=== PATIENT | male | born 1975 | race African-American/Black ===

== ENCOUNTER 2016-11-13 01:48 | Emergency (ER) | payer MEDICAID ==
--- NOTE | 2016-11-13 01:55 | EDPHY ---
H & P HPI/ROS: HPI CHIEF COMPLAINT: Suicidal ideation, homicidal ideation HISTORY OF PRESENT ILLNESS: This patient 41-year-old male, history of MR, bipolar disorder and schizoaffective disorder, presents emergency room on M1 hold by [place] [employer]. Patient was missing person earlier today the chief of police that brought him in states that he leads his usp and goes to local gas station starts saying he is going to kill people. He has never harmed anybody he has MR. He lives in a usp. He has been, cooperative with a chief of police. He presents emergency room on M1 hold. He does admit to suicidal ideation without a specific plan, and homicidal ideation. Past Medical History: Bipolar disorder, MR, schizoaffective disorder Past Surgical History: No recent surgery Social History: Denies daily use of drugs alcohol tobacco Family History: Noncontributory ROS REVIEW OF SYSTEMS: A comprehensive 10 point review of systems is otherwise negative aside from elements mentioned in the history of present illness. Exam Constitutional appears nontoxic triage nursing summary reviewed, vital signs reviewed, awake/alert. Eyes normal conjunctivae and sclera, EOMI, PERRLA. HENT normal inspection, atraumatic, moist mucus membranes, no epistaxis, neck supple/ no meningismus, no raccoon eyes. Respiratory clear to auscultation bilaterally, normal breath sounds, no respiratory distress, no wheezing. Cardiovascular rate normal, regular rhythm, no murmur, no edema, distal pulses normal. Gastrointestinal soft, non-tender, no rebound, no guarding, normal bowel sounds, no distension, no pulsatile mass. Genitourinary no CVA tenderness. Musculoskeletal no midline vertebral tenderness, full range of motion, no calf swelling, no tenderness of extremities, no meningismus, good pulses, neurovascularly intact. Skin pink, warm, & dry, no rash, skin atraumatic. Neurologic awake, alert and oriented x 3, AAOx3, moves all 4 extremities equally, motor intact, sensory intact, CN II-XII intact, normal cerebellar, normal vision, normal speech. Psychiatric flat affect Heme/Lymph/Immune no lymphadenopathy. Differential Diagnosis: Includes but is not limited to in a particular order suicidal ideation, bipolar disorder,, schizoaffective disorder, depression, underlying MR Medical Decision Making: Plan for this patient IV establishment, blood draw for medical clearance. Patient on M1 hold. Will need mental health evaluation. Re-evaluation: [id number]: Mandy with P. Has seen evaluated the patient. She does not feel that the patient needs inpatient hospitalization or psychiatric care. He is at his mental status baseline. Plan will be to eventually left the hold and sent him back to his usp however we need to make contact with usp and make sure comfortable taking him back. He has MR and is felt to be at baseline. This is routine for him with the same complaints. Chronic suicidal ideation, chronic homicidal ideation. Source: Patient, Police Constitutional: Initial Vital Signs Temperature (C) 36.4 C 11/13/16 02:00 Heart Rate 82 11/13/16 02:00 Respiratory Rate 18 11/13/16 02:00 Blood Pressure 125/80 H 11/13/16 02:00 O2 Sat (%) 96 11/13/16 02:00 O2 Delivery Mode Room Air Allergies/Adverse Reactions: methylphenidate HCl [From Ritalin] Allergy (Unknown, Verified 12/23/12 11:56) risperidone [From Risperdal] Allergy (Unknown, Verified 12/23/12 11:56) latex Allergy (Verified 11/13/16 01:59) Home Medications: Medication Instructions Recorded Amphet Asp and D/Amphet [Adderall 12/23/12 10 MG (RX)] Zolpidem Tartrate [Ambien] 12/23/12 guanFACINE HCL [Tenex] 12/23/12 traZODone [traZODONE 50MG (*)] 12/23/12 Medical Decision Making - Data Points Laboratory Results: Laboratory Results 11/13/16 01:55 11/13/16 01:55 11/13/16 11/13/16 11/13/16 02:00 01:55 01:55 WBC 9.50 10^3/uL 10^3/uL (3.80-9.50) RBC 5.32 10^6/uL 10^6/uL (4.40-6.38) Hgb 15.0 g/dL g/dL (13.7-17.5) Hct 45.6 % % (40.0-51.0) MCV 85.7 fL fL (81.5-99.8) MCH 28.2 pg pg (27.9-34.1) MCHC 32.9 g/dL g/dL (32.4-36.7) RDW 13.7 % % (11.5-15.2) Plt Count 242 10^3/uL 10^3/uL (150-400) MPV 9.7 fL fL (8.7-11.7) Neut % (Auto) 76.3 % H % (39.3-74.2) Lymph % (Auto) 17.1 % % (15.0-45.0) [place] % (Auto) 5.5 % % (4.5-13.0) Eos % (Auto) 0.6 % % (0.6-7.6) Baso % (Auto) 0.2 % L % (0.3-1.7) Nucleat RBC Rel Count 0.0 % % (0.0-0.2) Absolute Neuts (auto) 7.25 10^3/uL H 10^3/uL (1.70-6.50) Absolute Lymphs (auto) 1.62 10^3/uL 10^3/uL (1.00-3.00) Absolute Monos (auto) 0.52 10^3/uL 10^3/uL (0.30-0.80) Absolute Eos (auto) 0.06 10^3/uL 10^3/uL (0.03-0.40) Absolute Basos (auto) 0.02 10^3/uL 10^3/uL (0.02-0.10) Absolute Nucleated RBC 0.00 10^3/uL 10^3/uL (0-0.01) Immature Gran % 0.3 % % (0.0-1.1) Immature Gran # 0.03 10^3/uL 10^3/uL (0.00-0.10) Sodium 146 mEq/L H mEq/L (134-144) Potassium 4.2 mEq/L mEq/L (3.5-5.2) Chloride 110 mEq/L mEq/L (97-110) Carbon Dioxide 17 mEq/l L mEq/l (22-31) Anion Gap 19 mEq/L H mEq/L (8-16) BUN 8 mg/dL mg/dL (7-23) Creatinine 0.9 mg/dL mg/dL (0.7-1.3) Estimated GFR > 60 Glucose 126 mg/dL H mg/dL (70-100) Calcium 9.4 mg/dL mg/dL (8.5-10.4) Salicylates < 1.0 mg/dL L mg/dL (2.0-20.0) Urine Opiates Screen NEGATIVE (NEGATIVE) Acetaminophen < 10 mcg/mL L mcg/mL (10.0-30.0) Urine Barbiturates NEGATIVE (NEGATIVE) Ur Phencyclidine Scrn NEGATIVE (NEGATIVE) Ur Amphetamine Screen NEGATIVE (NEGATIVE) U Benzodiazepines Scrn NEGATIVE (NEGATIVE) Urine Cocaine Screen NEGATIVE (NEGATIVE) U Marijuana (THC) Screen NEGATIVE (NEGATIVE) Ethyl Alcohol < 10 mg/dL mg/dL (0-10) Departure - Departure Disposition: Other Psych, Not [place] Clinical Impression: Suicidal ideation, Homicidal ideation Condition: Good
[2016-11-13 02:07] LABS: % IMMATURE GRANULYOCYTES 0.3 % (0.0-1.1); ABSOLUTE IMMATURE GRANULOCYTES 0.03 10^3/uL (0.00-0.10); ADD DIFF? NO; ADD MORPH? NO; ADD SCAN? NO; ATYPICAL LYMPHOCYTE FLAG 0 (0-99); FRAGMENT RBC FLAG 0 (0-99); HEMATOCRIT 45.6 % (40.0-51.0); LEFT SHIFT FLG 0 (0-99); LIPEMIA HEMOLYSIS FLAG 80 (0-99); MEAN CELL HEMOGLOBIN 28.2 pg (27.9-34.1); MEAN CELL HEMOGLOBIN CONCENTR. 32.9 g/dL (32.4-36.7); MEAN CELL VOLUME 85.7 fL (81.5-99.8); MEAN PLATELET VOLUME 9.7 fL (8.7-11.7); PLATELET CLUMPS FLAG 10 (0-99); PLATELET COUNT 242 10^3/uL (150-400); RED BLOOD CELL COUNT 5.32 10^6/uL (4.40-6.38); RED CELL DISTRIBUTION WIDTH 13.7 % (11.5-15.2)
[2016-11-13 02:27] LABS: ANION GAP 19 mEq/L (8-16); CALCIUM 9.4 mg/dL (8.5-10.4); CARBON DIOXIDE 17 mEq/l (22-31); CHLORIDE 110 mEq/L (97-110); CREATININE 0.9 mg/dL (0.7-1.3); ETHANOL SERUM < 10 mg/dL (0-10); GLOMERULAR FILTRATION RATE > 60; GLUCOSE 126 mg/dL (70-100); POTASSIUM 4.2 mEq/L (3.5-5.2); SALICYLATE < 1.0 mg/dL (2.0-20.0); SODIUM 146 mEq/L (134-144)
[2016-11-13] MEDS ORDERED: HALOPERIDOL 5 MG TAB PO ONE (08:53)
[2016-11-13] MEDS ORDERED: DIVALPROEX NA 500 MG TAB PO ONE (08:56)
[2016-11-13 13:42] VITALS: BP 144/83; PULSE 86; RESP 16; TEMP 98.4; O2SAT 98
[2016-11-13] MEDS ORDERED: metFORMIN HCL 500 MG TAB PO SCH (18:00)
== END 2016-11-13 13:42 ==
DX: R45.851 Suicidal ideations (principal); R45.850 Homicidal ideations; Z91.040 Latex allergy status
CPT/HCPCS: 80305; G0480